=== PATIENT | female | born 1995 | race Caucasian/White ===

== ENCOUNTER 2017-08-15 14:07 | Emergency (ER) | payer MEDICAID ==
--- NOTE | 2017-08-15 16:00 | EDM.PDOC ---
ED HPI GENERAL MEDICAL PROBLEM - General Chief Complaint: Upper Extremity Injury/Pain Stated Complaint: UNABLE TO MOVE RT HAND Time Seen by Provider: 08/15/17 14:51 Source of Information: Reports: Patient History Limitations: Reports: No Limitations - History of Present Illness INITIAL COMMENTS - FREE TEXT/NARRATIVE: History of present illness: []Patient awoke yesterday morning unable to extend her right wrist. She has tenderness and she states swelling in her right forearm. She denies any trauma, fevers, rashes or recent illnesses. Patient has been using hot and cold compresses to her forearm without any improvement. Review of systems: As per history of present illness and below otherwise all systems reviewed and negative. Past medical history: As per history of present illness and as reviewed below otherwise noncontributory. Surgical history: As per history of present illness and as reviewed below otherwise noncontributory. Social history: No reported history of drug or alcohol abuse. Family history: As per history of present illness and as reviewed below otherwise noncontributory. Physical exam: General: Well developed, well nourished in NAD HEENT: Atraumatic, normocephalic, pupils reactive, negative for conjunctival pallor or scleral icterus, mucous membranes moist, throat clear, neck supple, nontender, trachea midline. Lungs: Clear to auscultation, breath sounds equal bilaterally, chest nontender. Heart: S1S2, regular, negative for clicks, rubs, or JVD. Abdomen: Soft, nondistended, nontender. Negative for masses or hepatosplenomegaly. Negative for costovertebral tenderness. Pelvis: Stable nontender. Genitourinary: Deferred. Rectal: Deferred. Extremities: Tenderness over the right forearm no distinct mass but she states is more swollen in one particular area over the extensor muscles. Patient is unable to extend the wrist. Patient is able to flex the wrist and move her fingers. She has sensation in her fingers and brisk capillary refill without edema distally. Atraumatic, negative for cords or calf pain. Neurovascular unremarkable. Neuro: Awake, alert, oriented. Cranial nerves II through XII unremarkable. Cerebellum unremarkable. Motor and sensory unremarkable throughout. Exam nonfocal. Diagnostics: []CPK negative, ultrasound forearm shows no distinct hematoma/fluid collection or mass. Therapeutics: [] Impression: []Forearm pain with wrist weakness Plan: []Follow-up Dr. Corbett tomorrow Definitive disposition and diagnosis as appropriate pending reevaluation and review of above. right forearm Pain Score (Numeric/FACES): 6 - Related Data Allergies Allergy/AdvReac Type Severity Reaction Status Date / Time children's aspirin Allergy Blisters Uncoded 08/15/17 14:13 Home Meds: Home Meds . [No Known Home Meds] 05/09/14 [History] Past Medical History - Past Health History Medical/Surgical History: Denies Medical/Surgical History Cardiovascular History: Reports: None Respiratory History: Reports: None Gastrointestinal History: Reports: None Genitourinary History: Reports: None COST SPECIALIST History: Reports: None Musculoskeletal History: Reports: None Neurological History: Reports: None Psychiatric History: Reports: None Endocrine/Metabolic History: Reports: None Hematologic History: Reports: None Immunologic History: Reports: None Oncologic (Cancer) History: Reports: None Dermatologic History: Reports: None - Past Surgical History Head Surgeries/Procedures: Reports: None HEENT Surgical History: Reports: Tonsillectomy Cardiovascular Surgical History: Reports: None Respiratory Surgical History: Reports: None GI Surgical History: Reports: None Female Surgical History: Reports: None Endocrine Surgical History: Reports: None Neurological Surgical History: Reports: None Musculoskeletal Surgical History: Reports: None Oncologic Surgical History: Reports: None Dermatological Surgical History: Reports: None Social & Family History - Family History Family Medical History: Noncontributory - Tobacco Use Smoking Status *Q: Current Every Day Smoker Years of Tobacco use: 5 Packs/Tins Daily: 0.5 - Caffeine Use Caffeine Use: Reports: Coffee, Energy Drinks, Soda, Tea - Alcohol Use Days Per Week of Alcohol Use: 0 - Recreational Drug Use Recreational Drug Use: No Review of Systems - Review of Systems Review Of Systems: See Below (See history of present illness) ED EXAM, GENERAL - Physical Exam Exam: See Below (See history of present illness) Course - Vital Signs Last Recorded V/S: Last Vital Signs Temp 96.7 F 08/15/17 14:13 Pulse 101 H 08/15/17 14:13 Resp 18 08/15/17 14:13 BP 111/70 08/15/17 14:13 Pulse Ox 96 08/15/17 14:13 - Orders/Labs/Meds Orders: Active Orders 24 hr Category Date Time Status Extremity Non Vascular Rt [US] Stat Exams 08/15/17 14:57 Taken Labs: Laboratory Tests 08/15/17 Range/Units 15:04 Creatine Kinase 53 ([id number]) IU/L Departure - Departure Time of Disposition: 16:00 Disposition: Home, Self-Care 01 Condition: Good Clinical Impression: Right forearm pain - Discharge Information Referrals: PCP,None [Primary Care Provider] - Additional Instructions: The following information is given to patients seen in the emergency department who are being discharged to home. This information is to outline your options for follow-up care. We provide all patients seen in our emergency department with a follow-up referral. The need for follow-up, as well as the timing and circumstances, are variable depending upon the specifics of your emergency department visit. If you don't have a primary care physician on staff, we will provide you with a referral. We always advise you to contact your personal physician following an emergency department visit to inform them of the circumstance of the visit and for follow-up with them and/or the need for any referrals to a consulting specialist. The emergency department will also refer you to a specialist when appropriate. This referral assures that you have the opportunity for follow-up care with a specialist. All of these measure are taken in an effort to provide you with optimal care, which includes your follow-up. Under all circumstances we always encourage you to contact your private physician who remains a resource for coordinating your care. When calling for follow-up care, please make the office aware that this follow-up is from your recent emergency room visit. If for any reason you are refused follow-up, please contact the [facility] Emergency Department at and asked to speak to the emergency department charge nurse. Follow-up with Dr. Corbett tomorrow [facility] [address] [place] [address], [address] [place] [address] - My Orders Last 24 Hours: My Active Orders 08/15/17 14:57 Extremity Non Vascular Rt [US] Stat - Assessment/Plan Last 24 Hours: My Active Orders 08/15/17 14:57 Extremity Non Vascular Rt [US] Stat
--- NOTE | 2017-08-16 14:34 | US ---
EXAM DATE: 08/15/17 PATIENT'S AGE: 22 Patient: LEONID REECE Facility: [place], [place] Site . Site : 1995 Study: US Extremity Right [id number]/[id number] 3:37:27 PM Ordering Physician: Shorty Argueta Final Report: INDICATION: Tender mass and forearm. Weakness and wrist and hand area. Technique: Sonogram of the right wrist and forearm. Findings: No sonographic abnormality in the right wrist or forearm including no distinct mass. Remainder negative. Impression: No significant abnormalities in the right forearm or wrist including no definable mass. Consider cross-sectional imaging with MRI to further evaluate for abnormalities if clinically desired. Dictated by Devin Macedo MD @ Aug 15 2017 3:38PM (Electronic Signature) Report Signed by Proxy. KARIN
== END 2017-08-15 16:36 | disposition home or self-care (01) ==
LOC: MW.ED 14:07
DX: M79.631 Pain in right forearm (principal); M62.81 Muscle weakness (generalized); F17.210 Nicotine dependence, cigarettes, uncomplicated; Z88.6 Allergy status to analgesic agent
CPT/HCPCS: 36415; 76881-26-RT; 76881-RT; 82550; 99283; 99284-25